=== PATIENT | male | born 1980 | race Two or more races ===

== ENCOUNTER 2016-08-26 18:37 | Emergency (ER) | payer OTHER ==
[2016-08-26] MEDS ORDERED: BSS OPTH.SOL* BTL ONE (18:52)
[2016-08-26] MEDS ORDERED: Fluorescein Sodium TOPICAL* 1 MG TEST ONE (18:52)
[2016-08-26] MEDS ORDERED: Proparacaine 0.5% OPHTH.SOL* 15 ML BTL ONE (18:52)
[2016-08-26 18:55] VITALS: BP 139/78
[2016-08-26] MEDS ORDERED: Tobramycin 0.3% OPHTH.SOL* 5 ML BOT (regular eye drops) RIGHT EYE ONE ×2 (20:13→20:14)
--- NOTE | 2016-08-27 22:21 | UC ---
Ronit Rodriges Erika, scribed for Luz Marina Asencio MD on 08/26/16 at 1956 . Eye Complaint HPI - HPI Summary HPI Summary: Patient is a 36-year-old male presenting to [facility] with a CC of possible corneal abrasion to the right eye. Patient reports that around 18:00 today, his girlfriend's glasses hit his right eye. He states it feels "as if a speck of dust" is in his eyes. He states he can see a scratch as well. He rates pain a 4/ 10, and states it has been improving. He denies photophobia and blurred vision. Pt denies FHx glaucoma. Pt reports he is UTD on tetanus. - History of Current Complaint Chief Complaint: UCEye Stated Complaint: EYE COMPLAINT Hx Obtained From: Patient Onset/Duration: Sudden Onset, Lasting Hours, Resolved - pain has resolved, scratch still present Timing: Constant Severity Initially: Moderate Severity Currently: Mild Pain Intensity: 1 Pain Scale Used: 0-10 Numeric Location of Injury: Other - cornea Character: Sharp Aggravating Factor(s): Nothing Alleviating Factor(s): Other - spontaneous resolution Associated Signs And Symptoms: Positive: Negative Related History: Trauma - struck by girlfriend's glasses - Risk Factors Penetrating Injury Risk Factor: Negative Globe Rupture Risk Factors: Negative Acute Glaucoma Risk Factors: Negative - Allergies/Home Medications Allergies/Adverse Reactions: Allergies Allergy/AdvReac Type Severity Reaction Status Date / Time No Known Allergies Allergy Verified 10/24/14 16:25 Home Medications: Home Medications NK [No Home Medications Reported] 08/26/16 [History Confirmed 08/26/16] PMH/Surg Hx/FS Hx/Imm Hx Respiratory History Of: Reports: Asthma - no medications - Surgical History Surgical History: None - Family History Known Family History: Positive: Respiratory Disease - asthma - Social History Alcohol Use: Rare Alcohol Amount: once weekly Substance Use Type: None Smoking Status (MU): Former Smoker Type: Cigarettes Length of Time of Smoking/Using Tobacco: 3 years Have You Smoked in the Last Year: No When Did the Patient Quit Smoking/Using Tobacco: 2009 Review of Systems Constitutional: Negative Eyes: Other - right corneal abrasion All Other Systems Reviewed And Are Negative: Yes Physical Exam Triage Information Reviewed: Yes Appearance: Well-Appearing, Well-Nourished, Pain Distress Vital Signs: Initial Vital Signs Temp 98.1 F 08/26/16 18:43 Pulse 74 08/26/16 18:43 Resp 16 08/26/16 18:43 BP 139/78 08/26/16 18:43 Pulse Ox 100 08/26/16 18:43 Vital Signs Reviewed: Yes Eye Exam: Other - see procedure note ENT: Positive: Normal ENT inspection Neck: Positive: Supple Respiratory: Positive: No respiratory distress Cardiovascular: Positive: RRR, Pulses Normal, Brisk Capillary Refill Musculoskeletal: Positive: Strength Intact, ROM Intact Neurological: Positive: Alert, Muscle Tone Normal Psychological Exam: Normal Skin Exam: Normal Procedures - Procedure Summary Procedure Summary: Proparacaine drops and fluorescein stain administered to the right eye. Used Wood's Lamp to view right eye. Corneal abrasion visualized from 12 o'clock. Negative hyphema. ILIA. No foreign body visualized. Eye Complaint Course/Dx - Differential Dx/Diagnosis Provider Diagnoses: 1. Corneal abrasion Discharge - Discharge Plan Condition: Stable Disposition: HOME Patient Education Materials: Corneal Abrasion (ED) Referrals: Mary Bryson MD [Primary Care Provider] - Additional Instructions: We started the tobramycin eye drops tonight at 8 pm. Please use two drops every four hours for one week. The documentation as recorded by the Ronit machado Erika accurately reflects the service I personally performed and the decisions made by , Luz Marina Asencio MD.
== END 2016-08-26 20:37 | disposition home or self-care (01) ==
LOC: UCEAST 18:37
DX: S05.01XA Injury of conjunctiva and corneal abrasion without foreign body, right eye, initial encounter (principal); W22.8XXA Striking against or struck by other objects, initial encounter; Y93.9 Activity, unspecified; Y92.9 Unspecified place or not applicable; Z87.891 Personal history of nicotine dependence
CPT/HCPCS: 99213; A9270-GY; G0463

== ENCOUNTER 2016-11-12 13:07 | Emergency (ER) | payer OTHER ==
[2016-11-12] MEDS ORDERED: Aspirin Low Dose CHEW TAB* 81 MG PO ONE (13:42)
[2016-11-12] MEDS ORDERED: NS 0.9% 1000 ML* 1,000 ML IV ONE (13:42)
[2016-11-12 13:53] LABS: Hematocrit 39 % (42-52); Hemoglobin 12.7 g/dl (14.0-18.0); Mean Corpuscular HGB Conc 33 g/dl (31-36); Mean Corpuscular Hemoglobin 26 pg (27-31); Mean Corpuscular Volume 81 fL (80-94); Mean Platelet Volume 9 um3 (7.4-10.4); Red Blood Count 4.85 10^6/ul (4.0-5.4); Red Cell Distribution Width 15 % (10.5-15); White Blood Count 7.2 10^3/ul (3.5-10.8)
[2016-11-12 14:05] LABS: ALT 15 U/L (7-52); AST 19 U/L (13-39); Albumin 4.4 g/dL (3.2-5.2); Alkaline Phosphatase 30 U/L (34-104); Anion Gap 7 mmol/L (2-11); BUN/Creatinine Ratio 25.3 (8-20); Blood Urea Nitrogen 19 mg/dL (6-24); C Reactive Protein < 1.00 mg/L (< 5.00); CO2 Carbon Dioxide 24 mmol/L (22-32); Calcium 9.5 mg/dL (8.6-10.3); Chloride 106 mmol/L (101-111); Creatine Kinase 110 U/L (10-223); EGFR African American 152.4 (>60); EGFR Non-African American 118.5 (>60); Globulin 2.7 g/dL (2-4); Glucose 104 mg/dL (70-100); Lipase 35 U/L (11.0-82.0); Magnesium 1.9 mg/dL (1.9-2.7); Potassium 3.7 mmol/L (3.5-5.0); Sodium 137 mmol/L (133-145); Total Protein 7.1 g/dL (6.4-8.9)
[2016-11-12 14:06] LABS: Troponin I 0.02 ng/mL (<0.04)
--- NOTE | 2016-11-12 14:18 | RAD ---
INDICATION: Chest pain. COMPARISON: Comparison is made with prior chest x-ray study from October 29, 2014. TECHNIQUE: A portable view of the chest was obtained. FINDINGS: Cardiac and mediastinal contours appear to be within normal limits. The lungs are clear. No pleural effusion is seen. IMPRESSION: NO EVIDENCE FOR ACUTE DISEASE.
[2016-11-12 14:38] LABS: TSH (Thyroid Stimulating Horm) 1.04 mcIU/mL (0.34-5.60)
--- NOTE | 2016-11-12 16:50 | ED ---
IGlen,Kaleigh, scribed for Manish Fuentes MD on 11/12/16 at 1400 . HPI Chest Pain - HPI Summary HPI Summary: This 44 y/o male presents to ED for acute misternal CP that woke him up at 0800 AM this morning. CP is described as dull, and is worse with deep breath, movement, and certain posture make the pain worse. CP still persists but is a lot better now. Negative abd pain, diaphoresis, or nausea. Pt reports mild fatigue and mild dyspnea this morning. PMHx includes GERD and mild asthma that is well controlled with steroid. He reports recent nasal congestion. He did consume breakfast this morning without much problem. Negative hx of blood clots. Pt reports hx of cardiac dz in extended family members with unspecified age, but does not report any cardiac dz hx to immediate family members. - History of Current Complaint Chief Complaint: EDChestPainROMI Hx Obtained From: Patient Onset/Duration: Started Days Ago, Atraumatic, Still Present Timing: Constant Pain Intensity: 2 Pain Scale Used: 0-10 Numeric Chest Pain Location: Mid Sternal Chest Pain Radiates: No Character: Dull/Aching Aggravating Factor(s): Position, Movement, Deep Breaths Alleviating Factor(s): Position Associated Signs and Symptoms: Positive: Chest Pain, Weakness - general weakness , Shortness of Breath. Negative: Fever, Diaphoresis, Nausea - Allergy/Home Medications Allergies/Adverse Reactions: Allergies Allergy/AdvReac Type Severity Reaction Status Date / Time No Known Allergies Allergy Verified 11/12/16 13:22 PMH/Surg Hx/FS Hx/Imm Hx Respiratory History: Reports: Hx Asthma - no medications - Immunization History Date of Tetanus Vaccine: UNK Date of Influenza Vaccine: UNK Infectious Disease History: No Infectious Disease History: Denies: Hx Clostridium Difficile, Hx Hepatitis, Hx Human Immunodeficiency Virus (HIV), Hx of Known/Suspected MRSA, Hx Shingles, Hx Tuberculosis, Hx Known/ Suspected VRE, Hx Known/Suspected VRSA, History Other Infectious Disease, Traveled Outside the [place] in Last 30 Days - Family History Known Family History: Positive: Respiratory Disease - asthma - Social History Alcohol Use: Rare Alcohol Amount: once weekly Hx Substance Use: No Substance Use Type: Reports: None Hx Tobacco Use: Yes Smoking Status (MU): Former Smoker Type: Cigarettes Length of Time of Smoking/Using Tobacco: 3 years Have You Smoked in the Last Year: No Review of Systems Negative: Fever, Skin Diaphoresis Positive: Chest Pain Positive: Shortness Of Breath - mild. Negative: Cough Negative: Abdominal Pain, Nausea Negative: Anxious, Depressed All Other Systems Reviewed And Are Negative: Yes Physical Exam Triage Information Reviewed: Yes Vital Signs On Initial Exam: Initial Vitals Temp Pulse Resp BP Pulse Ox 98.5 F 64 15 146/83 99 11/12/16 13:10 11/12/16 13:10 11/12/16 13:10 11/12/16 13:10 11/12/16 13:10 Vital Signs Reviewed: Yes Appearance: Positive: Well-Appearing, No Pain Distress Skin: Positive: Warm, Skin Color Reflects Adequate Perfusion, Dry Head/Face: Positive: Normal Head/Face Inspection Eyes: Positive: EOMI, ILIA Neck: Positive: Supple, Nontender Respiratory/Lung Sounds: Positive: Clear to Auscultation, Breath Sounds Present Cardiovascular: Positive: RRR, Pulses are Symmetrical in both Upper and Lower Extremities Abdomen Description: Positive: Nontender, Soft Musculoskeletal: Positive: Strength/ROM Intact Neurological: Positive: Sensory/Motor Intact, Alert, Oriented to Person Place, Time Psychiatric: Positive: Affect/Mood Appropriate AVPU Assessment: Alert Diagnostics - Vital Signs Vital Signs Temp Pulse Resp BP Pulse Ox 11/12/16 13:10 98.5 F 64 15 146/83 99 - Laboratory Lab Results: Lab Results 11/12/16 11/12/16 11/12/16 Range/Units 13:35 13:35 13:35 WBC 7.2 (3.5-10.8) 10^3/ul RBC 4.85 (4.0-5.4) 10^6/ul Hgb 12.7 L (14.0-18.0) g/dl Hct 39 L (42-52) % MCV 81 (80-94) fL MCH 26 L (27-31) pg MCHC 33 (31-36) g/dl RDW 15 (10.5-15) % Plt Count 210 (150-450) 10^3/ul MPV 9 (7.4-10.4) um3 Neut % (Auto) 69.6 (38-83) % Lymph % (Auto) 21.5 L (25-47) % Blanco % (Auto) 5.6 (1-9) % Eos % (Auto) 2.4 (0-6) % Baso % (Auto) 0.9 (0-2) % Absolute Neuts (auto) 5.0 (1.5-7.7) 10^3/ul Absolute Lymphs (auto) 1.6 (1.0-4.8) 10^3/ul Absolute Monos (auto) 0.4 (0-0.8) 10^3/ul Absolute Eos (auto) 0.2 (0-0.6) 10^3/ul Absolute Basos (auto) 0.1 (0-0.2) 10^3/ul Absolute Nucleated RBC 0 10^3/ul Nucleated RBC % 0 INR (Anticoag Therapy) 1.23 H (0.89-1.11) APTT 30.2 (26.0-36.3) seconds D-Dimer, Quantitative < 200 (Less Than 230) ng/mL Sodium 137 (133-145) mmol/L Potassium 3.7 (3.5-5.0) mmol/L Chloride 106 (101-111) mmol/L Carbon Dioxide 24 (22-32) mmol/L Anion Gap 7 (2-11) mmol/L BUN 19 (6-24) mg/dL Creatinine 0.75 (0.67-1.17) mg/dL Est GFR ( Amer) 152.4 (>60) Est GFR (Non-Af Amer) 118.5 (>60) BUN/Creatinine Ratio 25.3 H (8-20) Glucose 104 H (70-100) mg/dL Lactic Acid (0.5-2.0) mmol/L Calcium 9.5 (8.6-10.3) mg/dL Magnesium 1.9 (1.9-2.7) mg/dL Total Bilirubin 1.80 H (0.2-1.0) mg/dL AST 19 (13-39) U/L ALT 15 (7-52) U/L Alkaline Phosphatase 30 L (34-104) U/L Total Creatine Kinase 110 (10-223) U/L CK-MB (CK-2) 0.9 (0.6-6.3) ng/mL Troponin I 0.02 (<0.04) ng/mL C-Reactive Protein < 1.00 (< 5.00) mg/L Total Protein 7.1 (6.4-8.9) g/dL Albumin 4.4 (3.2-5.2) g/dL Globulin 2.7 (2-4) g/dL Albumin/Globulin Ratio 1.6 (1-3) Lipase 35 (11.0-82.0) U/L TSH 1.04 (0.34-5.60) mcIU/mL 11/12/16 11/12/16 Range/Units 13:35 15:55 WBC (3.5-10.8) 10^3/ul RBC (4.0-5.4) 10^6/ul Hgb (14.0-18.0) g/dl Hct (42-52) % MCV (80-94) fL MCH (27-31) pg MCHC (31-36) g/dl RDW (10.5-15) % Plt Count (150-450) 10^3/ul MPV (7.4-10.4) um3 Neut % (Auto) (38-83) % Lymph % (Auto) (25-47) % Blanco % (Auto) (1-9) % Eos % (Auto) (0-6) % Baso % (Auto) (0-2) % Absolute Neuts (auto) (1.5-7.7) 10^3/ul Absolute Lymphs (auto) (1.0-4.8) 10^3/ul Absolute Monos (auto) (0-0.8) 10^3/ul Absolute Eos (auto) (0-0.6) 10^3/ul Absolute Basos (auto) (0-0.2) 10^3/ul Absolute Nucleated RBC 10^3/ul Nucleated RBC % INR (Anticoag Therapy) (0.89-1.11) APTT (26.0-36.3) seconds D-Dimer, Quantitative (Less Than 230) ng/mL Sodium (133-145) mmol/L Potassium (3.5-5.0) mmol/L Chloride (101-111) mmol/L Carbon Dioxide (22-32) mmol/L Anion Gap (2-11) mmol/L BUN (6-24) mg/dL Creatinine (0.67-1.17) mg/dL Est GFR ( Amer) (>60) Est GFR (Non-Af Amer) (>60) BUN/Creatinine Ratio (8-20) Glucose (70-100) mg/dL Lactic Acid 1.7 (0.5-2.0) mmol/L Calcium (8.6-10.3) mg/dL Magnesium (1.9-2.7) mg/dL Total Bilirubin (0.2-1.0) mg/dL AST (13-39) U/L ALT (7-52) U/L Alkaline Phosphatase (34-104) U/L Total Creatine Kinase (10-223) U/L CK-MB (CK-2) (0.6-6.3) ng/mL Troponin I 0.00 (<0.04) ng/mL C-Reactive Protein (< 5.00) mg/L Total Protein (6.4-8.9) g/dL Albumin (3.2-5.2) g/dL Globulin (2-4) g/dL Albumin/Globulin Ratio (1-3) Lipase (11.0-82.0) U/L TSH (0.34-5.60) mcIU/mL Result Diagrams: 11/12/16 13:35 11/12/16 13:35 Lab Statement: Any lab studies that have been ordered have been reviewed, and results considered in the medical decision making process. - Radiology CXR Xray Interpretation: No Acute Changes Radiology Interpretation Completed By: Radiologist - EKG 1317 Cardiac Rate: NL - 64 bpm EKG Rhythm: Sinus Rhythm EKG Interpretation: early repolarization EKG Comparison: No Significant Change - from 2 EKG on 09/23/2012 Chest Pain Course/Dx - Course Course Of Treatment: NO CRITICAL CARE TIME. Assessment/Plan: PAIN IMPROVED IN ED. 6 HOUR TROPONIN NEGATIVE. REPEAT EKG NO CHANGE. DISCHARGE HOME STABLE. WILL RETURN IF WORSE. - Diagnoses Provider Diagnoses: Chest pain Discharge - Discharge Plan Condition: Stable Disposition: HOME Patient Education Materials: Chest Pain (ED) Referrals: Juan Boogie MD [Medical Doctor] - Additional Instructions: FOLLOW UP WITH YOUR DOCTOR. CALL TOMORROW, 11/13/16, FOR FOLLOW UP. DISCUSS A CARDIAC STRESS TEST. RETURN TO THE EMERGENCY DEPARTMENT FOR ANY WORSENING OF YOUR CONDITION; CHEST PAIN, SHORTNESS OF BREATH, YOU FEEL ILL OR QUESTIONS OR CONCERNS. The documentation as recorded by the Glen machado Soohyun accurately reflects the service I personally performed and the decisions made by me, Manish Fuentes MD.
[2016-11-12 16:57] VITALS: BP 118/79
== END 2016-11-12 16:59 | disposition home or self-care (01) ==
LOC: ED 13:07
DX: R07.9 Chest pain, unspecified (principal); R53.1 Weakness; R06.02 Shortness of breath; Z87.891 Personal history of nicotine dependence
CPT/HCPCS: 36415; 71010; 80053; 82550; 82553; 83605; 83690; 83735; 84443; 84484; 85025; 85379; 85610; 85730; 86140; 93005; 99283; A9270-GY